=== PATIENT | male | born 1960 | race Caucasian/White ===

== ENCOUNTER → 2017-07-29 | Outpatient (CLI) | payer BC ==
--- NOTE | 2017-07-29 13:00 | EXE ---
[place] [address] STRESS ECHOCARDIOGRAM Name: TAI BAE Room: [facility]#: [id number] Admission: 07/29/17 Attend Phys: Nolan Norris MD Discharge: Date of : 64 Date of Service: 07/29/17 1259 Report #: [id number] THIS REPORT FOR: //name// APPROVED REPORT Exam: Stress Echocardiogram Indication: Dizziness, Hypertension Patient Location: Out-Patient Stress Nurse: Shanon Mead RN Supervising Physician: Nolan Norris MD Status: routine Ht: 6 ft 1 in HR: 107 bpm BP: 133/89 mmHg Medical History Cardiac Risk Factors: HTN, Tobacco History (Current/Recent) Procedure The patient underwent an Exercise Stress Test using the Deny Protocol. Blood pressure, heart rate, and EKG were monitored. An Echocardiogram was performed by instructor adjunct pharmacy technician in four stages in quad fashion. At peak stress, four selected images were obtained and placed side by side with resting images for comparison. Stress Test Details Stress Test: Exercise stress testing was performed using a Deny protocol. HR Resting HR: 107 bpm Max Heart Rate (APMHR): 165 bpm Max HR Achieved: 169 bpm Target HR (85% APMHR): 140 bpm % of APMHR: 102 Recovery HR: 125 bpm HR response to stress: Normal HR response to stress BP Resting BP: 133/89 mmHg Max BP: 183/71 mmHg Recovery BP: 113/86 mmHg ECG Resting ECG: Sinus Rhythm, NSSTT changes Stress ECG: Sinus Rhythm, [place] [address] STRESS ECHOCARDIOGRAM Name: TAI BAE Room: [facility]#: [id number] Admission: 07/29/17 Attend Phys: Nolan Norris MD Discharge: Date of : 64 Date of Service: 07/29/17 1259 Report #: [id number] abnormalities Maximum ST Deviation: 0.5 mm Recovery ECG: Sinus Rhythm, nonspecific ST-T abnormalities Clinical Reason for Termination: Dyspnea, Completed protocol Exercise duration: 5 min sec Highest Stage Achieved: Stage 2: 2.5 mph at 12% grade. Exercise capacity: 7.0 METs Pre-Stress Echo The resting Echocardiogram showed normal left ventricular contractility with an estimated Ejection Fraction of about 55-60%. Post-Stress Echo The stress Echocardiogram showed normal left ventricular contractility with an estimated Ejection Fraction of about 65-70%. Conclusion Clinical Response: Non-ischemic Exercise Capacity: Below Average Stress ECG Response: Indeterminant Stress Echo Images: Non-ischemic low risk stress echo for future cardiac events Other Information Study Quality: Good <Conclusion> low risk stress echo for future cardiac events <ELECTRONICALLY SIGNED> By: Nolan Norris MD, FACC 07/29/17 1259 1259 1259 Nolan Norris MD, [facility] /INF
== END ==
LOC: M.CRD 10:08
DX: I10 Essential (primary) hypertension (principal)